=== PATIENT | female | born 1990 | race Caucasian/White ===

== ENCOUNTER 2022-07-13 10:24 | Outpatient (CLI) | payer BC | END 2022-07-13 10:25 | disposition home or self-care (01) | LOC: DTY/OP 10:24 | PROVIDERS: ATTEND Surgery | DX: E66.01 Morbid (severe) obesity due to excess calories (principal) | CPT/HCPCS: 97802 ==

== ENCOUNTER 2022-07-20 05:22 | Inpatient (IN) | payer BC ==
[2022-07-20] MEDS ORDERED: Bupivacaine/Epinephrine 0.25% 30 ML VIAL ONE (06:39)
[2022-07-20] MEDS ORDERED: Scopolamine 1.5 mg/72 hour Patch ONE (06:39)
[2022-07-20] MEDS ORDERED: fentaNYL PF 100 MCG/2 ML SYRINGE ONE (07:18)
[2022-07-20] MEDS ORDERED: SUGAMMADEX SODIUM 200 MG/2 ML VIAL ONE (07:19)
[2022-07-20] MEDS ORDERED: Sodium Chloride 0.9% 100 ML ONE (07:28)
[2022-07-20] MEDS ORDERED: cefOXitin 2 GM VIAL ONE (07:28)
[2022-07-20 07:37] LABS: SARS-CoV-2 NAA Rapid Test Not Detected (NotDetected)
[2022-07-20] MEDS ORDERED: Dextrose 5% in Water 1,000 ML IV PRN (07:38)
[2022-07-20] MEDS ORDERED: Dextrose 50% Abboject 50 ML SYRINGE SLOW IVP PRN (07:38)
[2022-07-20] MEDS ORDERED: diphenhydrAMINE 50 MG/ML VIAL IVP PRN (07:38)
[2022-07-20] MEDS ORDERED: Ondansetron PF 4 MG/2 ML Vial IVP PRN ×2 (07:38→18:39)
[2022-07-20] MEDS ORDERED: hydrALAZINE 20 MG/ML VIAL SLOW IVP PRN (07:38)
[2022-07-20] MEDS ORDERED: Ipratropium/Albuterol 3 ML NEB NEB PRN (07:38)
[2022-07-20] MEDS ORDERED: Morphine 2 MG/ML VIAL SLOW IVP PRN (07:38)
[2022-07-20] MEDS ORDERED: Ondansetron PF 4 MG/2 ML Vial ONE ×2 (07:43→09:27)
[2022-07-20] MEDS ORDERED: Lidocaine 1% PF 5 ML VIAL ONE (07:43)
[2022-07-20] MEDS ORDERED: Rocuronium Bromide 10 MG/ML (10ML VIAL) ONE (07:43)
[2022-07-20] MEDS ORDERED: Dexamethasone 20 MG/5 ML VIAL ONE (07:43)
[2022-07-20] MEDS ORDERED: PROPOFOL 200 MG/20 ML VIAL ONE (07:43)
[2022-07-20] MEDS ORDERED: PHENYLEPHRINE-NS 100 MCG/ML 10 ML SYRINGE ONE (07:43)
[2022-07-20] MEDS ORDERED: diphenhydrAMINE 50 MG/ML VIAL ONE (09:21)
[2022-07-20] MEDS ORDERED: Famotidine/PF 20 mg/2ml Vial ONE (09:26)
[2022-07-20] MEDS ORDERED: Fentanyl 100 MCG/2 ML VIAL ONE ×3 (09:31→10:34)
[2022-07-20] MEDS ORDERED: Ketorolac Tromethamine 30 MG/ML VIAL ONE (09:56)
[2022-07-20] MEDS ORDERED: D5 1/2 NS w/20 mEq KCL 1,000 ML ONE (10:55)
[2022-07-20] MEDS: Pantoprazole 40 MG VIAL IVP SCH (11:00)
[2022-07-20] MEDS: D5 1/2 NS w/20 mEq KCL 1,000 ML IV SCH ×3 (11:00→23:58)
[2022-07-20] MEDS: Ketorolac Tromethamine 30 MG/ML VIAL IVP SCH ×3 (12:13→23:58)
[2022-07-20 12:25] VITALS: BMI 41.5
[2022-07-20] MEDS: Hydrocodone-Acetamin 15 ML UDCUP PO PRN (14:27)
[2022-07-20] MEDS ORDERED: Promethazine HCl 25 MG/ML VIAL IM PRN (18:40)
[2022-07-21 03:57] VITALS: TEMP 98.1
[2022-07-21 06:04] LABS: #Lymphocytes 2.4 thou/uL (1.20-3.40); #Monocytes 0.5 thou/uL (0.11-0.59); #Neutrophils 3.4 thou/uL (1.40-6.50); %Basophils 0.6 % (0.0-1.0); %Eosinophils 0.5 % (0.0-10.0); %Monocytes 7.7 % (0.0-10.0); %Neutrophils 53.2 % (42.0-75.0); Hemoglobin 11.7 g/dL (12.0-16.0); Mean Corpuscular HGB CONC 35.2 g/dL (32.0-36.0); Mean Corpuscular Hemoglobin 33.2 pg (27.0-31.0); Mean Corpuscular Volume 94.2 fl (78.0-98.0); Mean Platelet Volume 8.4 fL (7.4-10.4); Platelet Count 166 10x3/uL (130-400); RBC Distribution Width 12.3 % (11.5-14.5); Red Blood Cell (RBC) Count 3.52 mill/uL (4.20-5.40); White Blood Cell (WBC) Count 6.4 10x3/uL (4.8-10.8)
[2022-07-21] MEDS: Ketorolac Tromethamine 30 MG/ML VIAL IVP SCH ×2 (06:04→12:35)
[2022-07-21 06:25] LABS: Anion Gap 10 mmol/L (10-20); BUN (Urea Nitrogen) 6 mg/dL (7.0-18.7); Calc. Creatinine Clearance 179 mL/min (70-130); Calcium 8.7 mg/dL (7.8-10.44); Carbon Dioxide 24 mmol/L (22-29); Chloride 110 mmol/L (98-107); Estimated GFR 100; Glucose 90 mg/dL (70-105); Sodium 140 mmol/L (136-145)
[2022-07-21] MEDS: Pantoprazole 40 MG VIAL IVP SCH (09:05)
[2022-07-21] MEDS ORDERED: hydrALAZINE 20 MG/ML VIAL SLOW IVP PRN (09:36)
[2022-07-21 11:51] VITALS: BP 118/74
[2022-07-21] MEDS: D5 1/2 NS w/20 mEq KCL 1,000 ML IV SCH (12:35)
[2022-07-21] MEDS: Hydrocodone-Acetamin 15 ML UDCUP PO PRN (14:22)
== END 2022-07-21 16:36 | disposition home or self-care (01) | DRG 621 ==
LOC: SURG A 06:18 → EDSTATUS 10:37 → SURG A 11:09
PROVIDERS: ADMIT Surgery; ATTEND Surgery
PROC: 0DB64Z3 Excision of Stomach, Percutaneous Endoscopic Approach, Vertical (ICD-10-PCS; principal; 2022-07-20)
PROC: 8E0W4CZ Robotic Assisted Procedure of Trunk Region, Percutaneous Endoscopic Approach (ICD-10-PCS; 2022-07-20)
DX: E66.01 Morbid (severe) obesity due to excess calories (principal); Z20.822 Contact with and (suspected) exposure to COVID-19; F32.9 Major depressive disorder, single episode, unspecified; Z68.41 Body mass index [BMI] 40.0-44.9, adult; Z88.8 Allergy status to other drugs, medicaments and biological substances; Z79.899 Other long term (current) drug therapy
CPT/HCPCS: 36415; 80048; 85025; 88307; 94760; C9113; J0694; J1100; J1200; J1650; J1885; J2272; J2405; J2704; J3010; J3480; J3490; S0028; U0002